=== PATIENT | female | born 1970 | race Caucasian/White ===

== ENCOUNTER 2019-04-13 05:17 | Day surgery (SDC) | payer OTHER ==
[2019-04-13] VITALS (21 sets, daily range): BP systolic 98–136; BP diastolic 51–73; PULSE 56–96; RESP 14–21; Ht 165.1 cm; Wt 68.5 kg
[~2019-04-13] VITALS: Ht 165.1 cm; Wt 68.5 kg
[2019-04-13] MEDS ORDERED: SOD CHLORIDE 0.9% 1,000 ML IV SCH (06:30)
[2019-04-13] MEDS ORDERED: CEFAZOLIN 2 GM/50 ML (PMX) 50 ML IVPB SCH (06:30)
--- NOTE | 2019-04-13 06:48 | PREAC ---
Date/Time of Note Date/Time of Note DATE: 04/13/19 TIME: 06:44 Anesthesia Eval and Record Evaluation Time Pre-Procedure Interview DATE: 04/13/19 TIME: 06:44 Age 48 Sex female NPO: 8 hrs Preoperative diagnosis Cervical HNP C6-7 Planned procedure Anterior Cervical Discectomy C6-7 and total Disc Arthroplasty Past Medical History Past Medical History: Includes Pulm: Smoking Hx Recreational drugs: Marijuana Surgery & Anesthesia Issues No known issue Meds Anticoagulation: No Beta Nicole within 24 hr: No Reason Beta Nicole not given: Pt. not on B-Nicole Current Medications Cefazolin Sodium/ Dextrose 50 ml @ 100 mls/hr PREOP IVPB ; Start 04/13/19 at 06:30; Stop 04/13/19 at 16:00 Lactated Ringer's 1,000 ml @ 0 mls/hr Q0M IV ; Start 04/13/19 at 07:00; Stop 04/13/19 at 16:00 Meds reviewed: Yes Allergies Coded Allergies: No Known Allergy (Unverified , 04/13/19) Allergies Reviewed: Yes Labs/Studies Labs Reviewed: Reviewed by anesthesiologist test: Negative Studies: ECG (n/a), CXR (n/a) Pre-procedure Exam Last vitals Vital Signs Date Temp Pulse Resp B/P (MAP) Pulse Ox O2 O2 Flow FiO2 Time Delivery Rate 04/13/19 97.2 61 18 114/71 95 Room Air 06:16 (85) Airway: Adequate mouth opening, Adequate thyromental dist Mallampati: Mallampati II Teeth: Normal Lung: Normal Heart: Normal ASA Physical Status ASA physical status: 2 Emergency: None Planned Anesthetic General/MAC: ETT Planned Pain Management Parenteral pain med Pre-operative Attestations Prior to commencing anesthesia and surgery, the patient was re-evaluated, there was verification of: *The patient's identity *The results of appropriate recent lab work and preoperative vital signs *The above evaluation not changing prior to induction *Anesthetic plan, risk benefits, alternative and complications discussed with patient/family; questions answered; patient/family understands, accepts and wishes to proceed. MARI HARE MD April 13, 2019 06:48
[2019-04-13] MEDS ORDERED: POLYMYXIN/BACITRACIN 1L IRRIG ONE (06:58)
[2019-04-13] MEDS ORDERED: BUPIVACAINE 0.5%/EPI (SDV) 10 ML INJ ONE (07:00)
[2019-04-13] MEDS ORDERED: SEVOFLURANE 15 MIN ONE (07:00)
[2019-04-13] MEDS ORDERED: CEFAZOLIN 1 GM INJ ONE (07:00)
[2019-04-13] MEDS ORDERED: THROMBIN 5000 UNIT VIAL ONE (07:00)
[2019-04-13] MEDS ORDERED: LACTATED RINGER'S 1,000 ML IV SCH (07:00)
[2019-04-13] MEDS ORDERED: GELATIN SIZE 100 SPONGE ONE (07:01)
--- NOTE | 2019-04-13 07:01 | HPN ---
Date/Time of Note Date/Time of Note DATE: 04/13/19 TIME: 07:00 Interval H&P Admission Note Pt. seen H&P reviewed: No system changes DERIC STEPHENS MD April 13, 2019 07:01
[2019-04-13] MEDS ORDERED: SUCCINYLCHOLINE CHLORIDE 100 MG/5 ML SYG IV ONE (07:14)
[2019-04-13] MEDS ORDERED: PROPOFOL 20 ML ONE (07:14)
[2019-04-13] MEDS ORDERED: ROCURONIUM 50 MG INJ ONE ×2 (07:14→07:56)
[2019-04-13] MEDS ORDERED: FENTAnyl 50 MCG/ML VIAL ONE (07:15)
[2019-04-13] MEDS ORDERED: MIDAZOLAM 1 MG/ML 2 ML INJ ONE (07:15)
[2019-04-13] MEDS ORDERED: ONDANSETRON 4 MG INJ ONE (07:30)
[2019-04-13] MEDS ORDERED: METOCLOPRAMIDE 10 MG INJ ONE (07:30)
[2019-04-13] MEDS ORDERED: DEXAMETHASONE 4 MG/ML 5 ML INJ ONE (07:31)
[2019-04-13] MEDS ORDERED: PHENYLephrine (100 MCG/ML) 10ML SYG ONE (07:45)
[2019-04-13] MEDS ORDERED: GLYCOPYRROLATE 0.4 MG INJ ONE (09:47)
[2019-04-13] MEDS ORDERED: NEOSTIGMINE 3 MG/3 ML SYRINGE ONE (09:47)
[2019-04-13] MEDS ORDERED: FENTAnyl 50 MCG/ML VIAL IV PRN ×2 (10:00)
[2019-04-13] MEDS ORDERED: DIPHENHYDRAMINE 50 MG INJ IV PRN ×2 (10:00→10:30)
[2019-04-13] MEDS ORDERED: OXYCODONE/ACETAMINOPHEN (5/325) TAB PO PRN ×2 (10:00)
[2019-04-13] MEDS ORDERED: HYDROmorphONE 1 MG/5 ML IV SYRINGE IV PRN ×3 (10:00)
[2019-04-13] MEDS ORDERED: EPHEDrine 25 MG/5 ML SYG IV PRN (10:00)
[2019-04-13] MEDS ORDERED: METOCLOPRAMIDE 10 MG INJ IV PRN (10:00)
[2019-04-13] MEDS ORDERED: ONDANSETRON 4 MG INJ IV PRN ×2 (10:00→10:30)
[2019-04-13] MEDS ORDERED: LABETALOL HCL 20MG INJ IV PRN (10:00)
[2019-04-13] MEDS ORDERED: MEPERIDINE 25 MG INJ IV PRN (10:00)
--- NOTE | 2019-04-13 10:14 | SIPON ---
Date/Time of Note Date/Time of Note DATE: 04/13/19 TIME: 10:13 Operative Report Preoperative Diagnosis C6-7 disc herniation Postoperative Diagnosis C6-7 disc herniation Operation/Procedure Performed C6-7 disc arthroplasty Surgeon see signature line hr assistant Kyung Morgan Anesthesia: general Estimated blood loss: 10 - 50 ml's Transfusion Required none Specimen Disc Grafts/Implants Disc replacement Complications none DERIC STEPHENS MD April 13, 2019 10:13
[2019-04-13] MEDS: FENTAnyl 50 MCG/ML VIAL IV PRN ×2 (10:25→10:57)
[2019-04-13] MEDS ORDERED: HYDROCODONE/APAP (10/325) TAB PO PRN (10:30)
[2019-04-13] MEDS ORDERED: NALOXONE (0.4 MG/ML) INJ IV PRN (10:30)
[2019-04-13] MEDS ORDERED: BISACODYL 10 MG SUPP PR PRN (10:30)
[2019-04-13] MEDS ORDERED: CEPASTAT LOZENGE MT PRN (10:30)
[2019-04-13] MEDS ORDERED: CYCLOBENZAPRINE 10 MG TAB PO PRN (10:30)
[2019-04-13] MEDS ORDERED: AL HYDROX/MG HYDROX/SIMETH 30 ML CUP PO PRN (10:30)
[2019-04-13] MEDS ORDERED: ACETAMINOPHEN 325 MG TAB PO PRN (10:30)
[2019-04-13] MEDS ORDERED: DIPHENHYDRAMINE 25 MG CAP PO PRN (10:30)
--- NOTE | 2019-04-13 10:33 | PAC ---
Date/Time of Note Date/Time of Note DATE: 04/13/19 TIME: 10:32 Post-Anesthesia Notes Post-Anesthesia Note Last documented vital signs Vital Signs Date Temp Pulse Resp B/P (MAP) Pulse Ox O2 O2 Flow FiO2 Time Delivery Rate 04/13/19 97.2 61 18 114/71 95 Room Air 10:16 (85) Activity: WNL Respiratory function: WNL Cardiovascular function: WNL Mental status: Baseline Pain reasonably controlled: Yes Hydration appropriate: Yes Nausea/Vomiting absent: Yes MARI HARE MD April 13, 2019 10:33
--- NOTE | 2019-04-13 10:40 | OPR ---
DATE OF OPERATION: 04/13/2019 PREOPERATIVE DIAGNOSIS: Right C6-7 disk herniation with radiculopathy and weakness. POSTOPERATIVE DIAGNOSIS: Right C6-7 disk herniation with radiculopathy and weakness. PROCEDURE: 1. Anterior cervical diskectomy and spinal cord decompression at C6-7. 2. Anterior cervical total disk arthroplasty at C6-C7. 3. Use of operative microscope. 4. Intraoperative neuromonitoring. 5. Use of C-arm fluoroscopy with interpretation without radiologist present. IMPLANTS: ProDisc cervical 5 mm large. PRIMARY SURGEON: oRbert Marin MD PROPERTY MAINTENANCE SUPERVISOR: Kyung Morgan MD NEED FOR MARGIN ANALYST: During this spinal surgical procedure, my paperhanger assistant was used to retract and protect the spinal nerves and dural sac. My paperhanger assistant also employed the suction catheters to ev acuate blood from the surgical field to improve visualization of the neural structures. The assistan t was medically necessary to facilitate the completion of the surgery in a safe and expeditious [facility]. [facility] regulations, as well as hospital bylaws, preclude the use of non-licensed [facility] care personnel, such as operating room technicians, to perform these functions. FINDINGS: Neuromonitoring at the start of the case revealed right C7 down 20%. MEP on the right was down 50%. At the end of the case, nerve signals returned to normal. The patient had a right-sided extruded fragment at C6-7 inferiorly migrated behind the endplate of C7 with stenosis. ESTIMATED BLOOD LOSS: 40 mL. DRAINS: None. SPECIMENS: C6-7 disk. COMPLICATIONS OF PROCEDURES: None DRAINS: None. ANESTHESIOLOGIST: Harpal Echavarria MD TYPE OF ANESTHESIA: General. INDICATIONS FOR PROCEDURE: This is a 48-year-old female with right cervical radiculopathy and weakne ss. She had extrusion at C6-7. Given the neurological deficits, it is recommended she undergo the a leonel procedure. Preoperatively, we discussed risks, benefits, alternatives of surgery. She wished t o proceed. DESCRIPTION OF PROCEDURE IN DETAIL: The patient was identified in the holding area, given Ancef anti biotics in the operating room where she was successfully placed under general anesthesia. Neuromonit oring leads were placed, sequential compressive devices were applied. Remote intraoperative neuromon itoring was performed by Dr. Brandon from 8:00 a.m. until 10:00 a.m. to include SSEP, MEP, and EMG performed by [employer]. The patient was placed in the operative table in supine position. To wels were placed behind the neck and between the scapular blades. Arms were tucked at the side. [facility] was prepped and draped in usual sterile fashion. Left-sided neck incision was made. I incised the skin incised the skin and then the platysma in line with the skin incision. I then identified an in terval between the sternocleidomastoid and strap muscles and identified the anterior spine. I identi fied the C6-7 level and a bent spinal needle was placed and lateral film to confirm the correct level s. I then subperiosteally dissected along the longus colli musculature. I then placed self-retainin g retractors. I then placed [place] pins into C6 and C7. I made an annulotomy and distracted the dis k space and performed a radical diskectomy. Microscope was then brought in and I removed the posteri or longitudinal ligament. Posterior to this, there was an extruded fragment which had migrated infer iorly. I used a rotund in order to remove the fragment and was able to remove the large piece. Once this was done, all nerve signals returned to normal. I then placed the appropriate trials to find t he appropriate height of the disk implant. I made the appropriate keel cuts and then placed the yoni l cervical and the final total cervical disk arthroplasty, C6-C7 under C-arm visualization. Once thi s was done, a microscope was taken off the field. Nerve signals remained normal. I then irrigated t he wound. I removed the [place] pins and used bone wax to fill the holes. There was an anterior oste ophyte which I elected not to remove as U was concerned this would lead to heterotopic ossification. I then irrigated the wound. I removed the retractors and closed the wound in layers. I closed the platysma with a running 2-0 Vicryl stitch, then closed subcutaneous tissue with a 3-0 Vicryl stitch. Dermabond was then applied. The patient was then awakened from anesthesia and taken to the recovery room in stable condition. Lap, sponge count correct x2. There were no apparent complications durin g the procedure. The patient will be admitted to the orthopedic [facility] for routine postoperative care to include pain co ntrol, neurovascular checks, antibiotics, and physical therapy. Dictated By: ROBERT GOLDSTEIN/SOL[place] Conf#: [id number] DID#: [id number]
[2019-04-13] MEDS: D5W-0.45 NACL + KCL 20 MEQ 1,000 ML IV SCH ×2 (11:26→21:01)
[2019-04-13] MEDS: CEFAZOLIN 1 GM/50 ML (PMX) 50 ML IVPB SCH ×2 (11:57→21:01)
[2019-04-13] MEDS: HYDROCODONE/APAP (10/325) TAB PO PRN ×3 (13:14→21:06)
[2019-04-13] MEDS: HYDROmorphONE 0.5 MG/0.5 ML SYG IV PRN ×2 (15:12→19:24)
--- NOTE | 2019-04-13 15:23 | CONS ---
DATE OF ADMISSION: 04/13/2019 DATE OF CONSULTATION: 04/13/2019 TYPE OF CONSULTATION: Medical. Thank you, Dr. Marin, for asking me to participate in medical management of this patient. REASON FOR CONSULTATION: Bradycardia. HISTORY OF PRESENT ILLNESS: This 48-year-old female is now postop cervical spine surgery by Dr. Marin. She has had a right anterior cervical diskectomy and spinal cord decompression at C6 to C7 level and also an anterior cervical total disk arthroplasty at C6 to C7 level. Preop , The patient had right C6 to C7 disk herniation with radiculopathy pain and weakness in the right arm. The patient is awake and alert. She is having some incisional neck pain and is being treated with pain medication . The patient has been bradycardic on the monitor. She has no prior history of heart disease. She is on no medications. She did take some antibiotics preoperatively because of sore throat which has resolved prior to surgery. PAST MEDICAL HISTORY: Remarkable for anxiety and back trouble. MEDICATIONS: She is on no chronic medication. ALLERGIES: SHE HAS NO KNOWN DRUG ALLERGIES. PAST SURGICAL HISTORY: She has never had prior surgery. 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 She does not smoke and she drinks alcohol occasionally. PHYSICAL EXAMINATION: GENERAL: At this time reveals a well-developed female in no apparent distress. VITAL SIGNS: Temperature 98.2, pulse is 72, respirations 18, blood pressure 112/60, O2 saturation 100% on 2-liter nasal cannula. HEENT: Eyes: Extraocular muscles intact. Nose and mouth are normal. NECK: She does have a fresh wound from her surgery today which is clean and dry. She has an ice pack over her neck. HEART: Regular rhythm. No murmurs, gallops or rubs. ABDOMEN: Soft, nontender. No masses or megaly. EXTREMITIES: No peripheral edema. IMPRESSION: This patient is doing well after surgery today. She is bradycardic, but asymptomatic. I will do an EKG to check her heart rhythm. I will manage her medical issues. PLAN: 1. Stat EKG , which shows sinus bradycardia . 2. We will have laboratory tests done in the morning. 3. Postop cervical spine surgery protocol. 4. I will follow the patient along with you medically. Dictated By: YURY ALVAREZ MD, ND/SOLEDAD Conf#: [id number] DID#: [id number] CC: DERIC MARIN MD; LI MIGUEL MD;*EndCC* MTDD
[2019-04-13] MEDS: DOCUSATE SODIUM 100 MG CAP PO SCH (21:01)
[2019-04-14] MEDS: HYDROCODONE/APAP (10/325) TAB PO PRN ×3 (01:51→11:41)
[2019-04-14 02:10] VITALS: BP 103/57; PULSE 70; RESP 18
[2019-04-14] MEDS: CEFAZOLIN 1 GM/50 ML (PMX) 50 ML IVPB SCH (04:25)
[2019-04-14] MEDS: HYDROmorphONE 0.5 MG/0.5 ML SYG IV PRN ×2 (04:35→09:03)
[2019-04-14] MEDS: D5W-0.45 NACL + KCL 20 MEQ 1,000 ML IV SCH (06:09)
[2019-04-14 08:04] VITALS: BP 114/63; PULSE 62; RESP 18
--- NOTE | 2019-04-14 08:10 | CONS ---
Assessment/Plan Assessment/Plan Hospital Course (Demo Recall) 1. Misty is now 1 day postop a cervical spine surgery. She does have some neck pain around the incision. The incision is dry without swelling or erythema. She is being medicated for pain. 2.She has been afebrile. Her vital signs are stable and her laboratory tests are acceptable. 3.Continue current management and start physical therapy as tolerated. Consultation Date/Type/Reason Admit Date/Time Initial Consult Date Date/Time of Note DATE: 04/14/19 TIME: 08:07 24 HR Interval Summary Free Text/Dictation Misty is awake and alert . She is 1 day postop a cervical spine surgery. She is having some incisional neck pain but her right arm pain has resolved. She also has some throat soreness. Constitutional: improved Exam/Review of Systems Exam Vitals Vital Signs Date Temp Pulse Resp B/P (MAP) Pulse Ox O2 O2 Flow FiO2 Time Delivery Rate 04/14/19 98.0 62 18 114/63 96 Room Air 08:04 (80) 04/13/19 2.0 10:31 Intake and Output 04/13/19 04/13/19 04/14/19 1515:00 23:00 07:00 IntakeIntake Total 1210 ml 1450 ml 1250 ml OutputOutput Total 50 ml 300 ml BalanceBalance 1160 ml 1450 ml 950 ml Constitutional: alert, oriented, well developed Respiratory: clear to auscultation, normal air movement Cardiovascular: regular rate and rhythm Gastrointestinal: soft, non-tender Musculoskeletal: nl extremities to inspection Results Result Diagram: 04/14/19 0428 04/14/19 0428 Results 24hrs Laboratory Tests Test 04/14/19 04:28 04/14/19 06:51 White Blood Count 18.0 H Red Blood Count 3.64 L Hemoglobin 11.0 L Hematocrit 35.1 L Mean Corpuscular Volume 96.4 Mean Corpuscular Hemoglobin 30.2 Mean Corpuscular Hemoglobin Concent 31.3 L Red Cell Distribution Width 13.1 Platelet Count 306 Mean Platelet Volume 11.7 H Immature Granulocytes % 0.600 H Neutrophils % 80.2 H Lymphocytes % 13.6 L Monocytes % 5.2 Eosinophils % 0.2 Basophils % 0.2 Nucleated Red Blood Cells % 0.0 Immature Granulocytes # 0.100 H Neutrophils # 14.4 H Lymphocytes # 2.4 Monocytes # 0.9 Eosinophils # 0.0 Basophils # 0.0 Nucleated Red Blood Cells # 0.0 Sodium Level 142 Potassium Level 4.5 Chloride Level 108 Carbon Dioxide Level 27 Anion Gap 7 Blood Urea Nitrogen 7 Creatinine 0.62 Est Glomerular Filtrat Rate mL/min > 60 Glucose Level 149 Calcium Level 8.4 Magnesium Level 2.0 Lab Scanned Report REFERENCE LAB Medications Medication Current Medications Potassium Chloride/Dextrose/ Sod Cl 1,000 ml @ 100 mls/hr Q10H IV Last administered on 04/14/19at 06:09; Admin Dose 100 MLS/HR; Start 04/13/19 at 10:06 Acetaminophen/ Hydrocodone Bitart (Sycamore (10325)) 1 tab Q4H PRN PO .PAIN 1-5; Start 04/13/19 at 10:30 Acetaminophen/ Hydrocodone Bitart (Sycamore (10/325)) 2 tab Q4H PRN PO .PAIN 6-10 Last administered on 04/14/19at 07:24; Admin Dose 2 TAB; Start 04/13/19 at 10:30 Hydromorphone HCl (Dilaudid) 0.2 mg Q1H PRN IV .BREAKTHROUGH PAIN Last administered on 04/14/19at 04:35; Admin Dose 0.2 MG; Start 04/13/19 at 10:30 Ondansetron HCl (Zofran Inj) 4 mg Q6H PRN IV NAUSEA/VOMITING; Start 04/13/19 at 10:30 Bisacodyl (Dulcolax Supp) [address] .CONSTIPATION; Start 04/13/19 at 10:30 Docusate Sodium (Colace) 100 mg BID PO Last administered on 04/13/19at 21:01; Admin Dose 100 MG; Start 04/13/19 at 21:00 Al Hydrox/Mg Hydrox/Simethicone (Mag-Al Plus) 15 ml Q6H PRN PO .CONSTIP ATION/DYSPEPSIA; Start 04/13/19 at 10:30 Acetaminophen (Tylenol Tab) 650 mg Q4H PRN PO SHAH OR TEMP GREATER THAN 101.3F; Start 04/13/19 at 10:30 Cyclobenzaprine HCl (Flexeril) 5 mg TID PRN PO .MUSCLE SPASM; Start 04/13/19 at 10:30 Phenol (Cepastat Lozenge) 1 lozenge PRN PRN MT .SORE THROAT; Start 04/13/19 at 10:30 Diphenhydramine HCl (Benadryl) 25 mg Q6H PRN PO .ITCHING; Start 04/13/19 at 10:30 Diphenhydramine HCl (Benadryl) 25 mg Q6H PRN IV .ITCHING; Start 04/13/19 at 10:30 Naloxone HCl (Narcan) 0.2 mg Q2M PRN IV .RR 8 BREATHS/MIN OR LESS; Start 04/13/19 at 10:30 YURY ALVAREZ MD April 14, 2019 08:10
[2019-04-14] MEDS: DOCUSATE SODIUM 100 MG CAP PO SCH (08:59)
--- NOTE | 2019-04-14 16:18 | RADRPT ---
Vent Rate: 48 bpm RR Interval: 1256 msec AK Interval: 140 msec QRS Duration: 70 msec QT Interval: 477 msec QTC Interval: 426 msec P-R-T Zirconia: 44 - 45 - 47 degrees Sinus bradycardia...rate< 50 Electronically Signed By: Ameya Smith
--- NOTE | 2019-04-15 08:35 | DS ---
Date/Time of Note Date/Time of Note DATE: 04/15/19 TIME: 08:35 Discharge Summary Admission/Discharge Info Admit Date/Time April 13 Discharge Date/Time April 14 Discharge Diagnosis Cervical disc replacement Patient Condition: Good Procedures Cervical disc replacement Hospital Course Patient was admitted to the orthopedic [facility] after undergoing a cervical disc replacement. Her postoperative course was uncomplicated. By postoperative day 1 she was deemed stable for discharge with follow-up arranged with the undersigned Home Meds No Active Prescriptions or Reported Meds Primary Care Provider Not On Staff Doctor DERIC STEPHENS MD April 15, 2019 08:35
== END 2019-04-14 12:00 | disposition home or self-care (01) ==
LOC: SDS 05:17 → MS1 11:05 → SDS 04-14 12:00
PROVIDERS: ATTEND Specialist
DX: M50.123 Cervical disc disorder at C6-C7 level with radiculopathy (principal); R00.1 Bradycardia, unspecified
CPT/HCPCS: 63075; 72050; 80048; 83735; 85025; 88304; 93005; 97116; 97161; 97530; J0690; J1100; J1170; J2250; J2370; J2405; J2710; J2765; J3010; J3480